=== PATIENT | female | born 1995 | race Caucasian/White ===

== ENCOUNTER 2024-11-10 07:57 | Emergency (ER) | payer OTHER ==
[2024-11-10] MEDS ORDERED: Dexamethasone 10 MG/ML VIAL ONE (08:30)
[2024-11-10] MEDS ORDERED: Ketorolac Tromethamine 30 MG (1 mL) VIAL ONE (08:30)
[2024-11-10] MEDS ORDERED: LORazepam 2 MG/ML SYR.(CARPUJECT) ONE (08:31)
== END 2024-11-10 09:27 | disposition home or self-care (01) ==
LOC: ERS 07:57
DX: M54.50 Low back pain, unspecified (principal)
CPT/HCPCS: 72100; 96372; 96374; 96375; J1100; J1885; J2060

== ENCOUNTER 2025-03-05 12:39 | Outpatient (CLI) | payer OTHER | END 2025-03-05 12:40 | disposition home or self-care (01) | LOC: RAD 12:39 | PROVIDERS: ATTEND Nurse Practitioner Family | DX: R19.02 Left upper quadrant abdominal swelling, mass and lump (principal); N20.0 Calculus of kidney | CPT/HCPCS: 74019 ==